=== PATIENT | male | born 1975 | race Caucasian/White ===

== ENCOUNTER 2017-08-19 23:08 | Emergency (ER) | payer OTHER ==
[~2017-08-19] VITALS: Ht 177.8 cm; Wt 72.6 kg
[2017-08-19 23:49] LABS: ABSOLUTE BASOPHILS 0.1 thou/uL (0.0-0.2); ABSOLUTE EOSINOPHILS 0.7 thou/uL (0.0-0.7); ABSOLUTE LYMPHOCYTES 2.5 thou/uL (0.8-5.3); ABSOLUTE MONOCYTES 0.6 thou/uL (0.0-1.2); ABSOLUTE NEUTROPHILS 3.5 thou/uL (1.6-8.1); BASOPHILS 1.4 %; EOSINOPHILS 8.8 %; HEMATOCRIT 44.4 % (42.0-52.0); HEMOGLOBIN 15.2 gm/dL (14.0-18.0); LYMPHOCYTES 34.2 %; MCH 31.8 pg (26.0-34.0); MCHC 34.4 g/dL (28.0-37.0); MCV 92.5 fL (80.0-100.0); MONOCYTES 8.7 %; MPV 8.7 fl. (7.2-11.1); NUCLEATED RBCS 0 /100WBC; PLATELET COUNT* 261 thou/uL (150-400); POLYS 46.9 %; RDW-CV 12.7 % (10.5-14.5); WBC 7.4 thou/uL (4.0-11.0)
[2017-08-19 23:55] LABS: ANION GAP 9 mmol/L (7-16); BUN 13 mg/dL (7-18); CALCIUM 9.1 mg/dL (8.5-10.1); CHLORIDE 105 mmol/L (98-107); CO2 29 mmol/L (21-32); GLUCOSE 124 mg/dL (70-99); POTASSIUM 3.3 mmol/L (3.5-5.1); SODIUM 143 mmol/L (136-145)
[2017-08-20 00:03] LABS: TROPONIN-I LEVEL <0.06 ng/mL (<0.06)
[2017-08-20] MEDS ORDERED: ACYCLOVIR 400400 MG PO (00:26)
[2017-08-20 00:47] VITALS: BP 128/66
--- NOTE | 2017-08-20 09:59 | EKG ---
[place] [address] ELECTROCARDIOGRAM REPORT Name: MARCO ROMAN [facility] [place] [id number] Admission: 08/19/17 Attend Phys: Discharge: 08/20/17 Date of : 75 Report #: [id number] THIS REPORT FOR: //name// [facility] ED Test Date: 2017-08-19 Test Time: 23:13:39 Pat Name: MARCO ROMAN Department: Room: Gender: M Board Attendant: JUSTA Myers : 1975 Requested By: Iveth Cottrell Order Number: [id number] Danis MD: John Ritchie Measurements Intervals [place] Rate: 91 P: 63 [place]: 143 QRS: 44 QRSD: 98 T: 41 QT: 333 QTc: 410 Interpretive Statements Sinus rhythm Probable left atrial enlargement No previous ECG available for comparison Electronically Signed On 08-20-2017 9:58:46 CDT by John Ritchie [email or web address] <ELECTRONICALLY SIGNED> By: John Ritchie MD, [facility] 08/20/17 0958 2313 2313 John Ritchie MD, FACC /EPI
== END 2017-08-20 00:52 | disposition home or self-care (01) ==
LOC: M.ERS 23:08
PROVIDERS: Emergency Medicine
DX: B00.1 Herpesviral vesicular dermatitis (principal); F41.9 Anxiety disorder, unspecified; F32.9 Major depressive disorder, single episode, unspecified; F17.220 Nicotine dependence, chewing tobacco, uncomplicated

== ENCOUNTER 2017-11-18 18:17 | Emergency (ER) | payer OTHER ==
[~2017-11-18] VITALS: Ht 177.8 cm; Wt 70.3 kg
[~2017-11-18 18:17] MED LIST: ACYCLOVIR 400400 MG PO
[2017-11-18 18:41] LABS: ABSOLUTE BASOPHILS 0.1 thou/uL (0.0-0.2); ABSOLUTE EOSINOPHILS 0.3 thou/uL (0.0-0.7); ABSOLUTE LYMPHOCYTES 1.8 thou/uL (0.8-5.3); ABSOLUTE MONOCYTES 0.6 thou/uL (0.0-1.2); ABSOLUTE NEUTROPHILS 3.1 thou/uL (1.6-8.1); BASOPHILS 1.1 %; EOSINOPHILS 4.8 %; HEMATOCRIT 39.4 % (42.0-52.0); HEMOGLOBIN 13.5 gm/dL (14.0-18.0); LYMPHOCYTES 31.2 %; MCH 32.1 pg (26.0-34.0); MCHC 34.3 g/dL (28.0-37.0); MCV 93.5 fL (80.0-100.0); MPV 8.9 fl. (7.2-11.1); NUCLEATED RBCS 0 /100WBC; PLATELET COUNT* 280 thou/uL (150-400); POLYS 52.9 %; RBC 4.21 mil/uL (4.50-6.00); RDW-CV 13.1 % (10.5-14.5); WBC 5.9 thou/uL (4.0-11.0)
[2017-11-18 18:52] LABS: ANION GAP 7 mmol/L (7-16); BUN 20 mg/dL (7-18); CALCIUM 8.9 mg/dL (8.5-10.1); CHLORIDE 104 mmol/L (98-107); CO2 29 mmol/L (21-32); CREATININE 1.1 mg/dL (0.6-1.3); GLUCOSE 88 mg/dL (70-99); POTASSIUM 3.6 mmol/L (3.5-5.1); SODIUM 140 mmol/L (136-145)
[2017-11-18 19:01] LABS: ALBUMIN 4.1 g/dL (3.4-5.0); ALKALINE PHOSPHATASE 54 U/L (46-116); SGOT 8 U/L (15-37); SGPT 11 U/L (30-65); TOTAL BILIRUBIN 0.3 mg/dL (<0.1-1.0); TOTAL PROTEIN 7.3 g/dL (6.4-8.2); TROPONIN-I LEVEL <0.06 ng/mL (<0.06)
[2017-11-18 21:25] VITALS: BP 102/70
--- NOTE | 2017-11-19 14:59 | EKG ---
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
--- NOTE | 2017-11-19 14:59 | EKG ---
[place] [address] ELECTROCARDIOGRAM REPORT Name: MARCO ROMAN 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
== END 2017-11-18 21:33 | disposition home or self-care (01) ==
LOC: M.ERS 18:17
PROVIDERS: Nurse Practitioner Family
DX: R07.89 Other chest pain (principal); F41.9 Anxiety disorder, unspecified; F32.9 Major depressive disorder, single episode, unspecified; Z77.22 Contact with and (suspected) exposure to environmental tobacco smoke (acute) (chronic)